=== PATIENT | male | born 1990 | race African-American/Black ===

== ENCOUNTER 2017-04-20 02:40 | Emergency (ER) | payer OTHER ==
[~2017-04-20] VITALS: Ht 167.6 cm; Wt 85.4 kg
[2017-04-20 02:46] VITALS: BP 133/96
--- NOTE | 2017-04-20 02:58 | NUR ---
TO ER BED 5
--- NOTE | 2017-04-20 03:02 | NUR ---
Patient being evaluated by physician at bedside.
[2017-04-20 03:15] VITALS: BP 133/96
== END 2017-04-20 03:15 | disposition home or self-care (01) ==
LOC: MED 02:40
DX: K27.9 Peptic ulcer, site unspecified, unspecified as acute or chronic, without hemorrhage or perforation (principal)

== ENCOUNTER 2017-11-08 01:10 | Emergency (ER) | payer OTHER ==
[~2017-11-08] VITALS: Ht 170.2 cm; Wt 86.2 kg
[2017-11-08 01:16] VITALS: BP 143/90
--- NOTE | 2017-11-08 01:18 | NUR ---
27 Y/O M W/C/O sorethroat, cant swallowed, white patches on his tongue for 3-4 days. PT DENIES ANY FEVER OR CHILLS. NO OTHER S/S OF DISTRESS NOTED. ER MD MADE AWARE.
--- NOTE | 2017-11-08 01:27 | NUR ---
PT. AMBULATES TO ER BED 11
--- NOTE | 2017-11-08 01:32 | NUR ---
PATIENT IS BEING SEEN BY DR FARR AT BEDSIDE
[2017-11-08] MEDS ORDERED: cefTRIAXone 1,000 MG in LIDOCAINE 1% ***ER ONLY *** 2.1 ML IM ONE (02:10)
--- NOTE | 2017-11-08 02:38 | NUR ---
Patient discharged with v/s stable. Written and verbal after care instructions given and explained. Patient alert, oriented and verbalized understanding of instructions. Ambulatory with steady gait. All questions addressed prior to discharge. ID band removed. Patient advised to follow up with PMD. Rx of AMOX 500MG AND MOTRIN 800MG given. Patient educated on indication of medication including possible reaction and side effects. Opportunity to ask questions provided and answered.
[2017-11-08 02:39] VITALS: BP 119/82
== END 2017-11-08 02:28 | disposition home or self-care (01) ==
LOC: MED 01:10
DX: J03.90 Acute tonsillitis, unspecified (principal); F17.210 Nicotine dependence, cigarettes, uncomplicated; F12.90 Cannabis use, unspecified, uncomplicated
CPT/HCPCS: 96372; 99283; J0696; J2001

== ENCOUNTER 2019-04-11 16:22 | Emergency (ER) | payer OTHER ==
[~2019-04-11] VITALS: Ht 170.2 cm; Wt 77.6 kg
[2019-04-11 16:26] VITALS: BP 158/77
--- NOTE | 2019-04-11 17:50 | NUR ---
PATIENT AMBULATED TO BED #7
[2019-04-11 17:52] VITALS: BP 165/80
--- NOTE | 2019-04-11 17:52 | NUR ---
PT BIB FRIEND C/O ABDOMINAL PAIN X 2 WEEKS. PT REPORTS NON-RADIATING INTERMITENT SHARP PAIN IN EPIGASTRIC REGION AT 8/10. PT REPORTS HARD STOOL THIS MORNING. + NAUSEA AND VOMITING. DENIES FEVER OR UTI SYMPTOMS. VSS. ER MD TO SEE PT.
--- NOTE | 2019-04-11 19:08 | NUR ---
Steve grimes in [facility] - 04/11/19 at 1909 by MICHELLE RECIEVED BEDSIDE REPORT FROM CATHERINE PRITCHETT. ASSUMED CARE AT THIS TIME.
--- NOTE | 2019-04-11 19:10 | NUR ---
RECIEVED BEDSIDE REPORT FROM CATHERINE PRITCHETT. ASSUMED CARE AT THIS TIME.
[2019-04-11] MEDS ORDERED: DICYCLOMINE 20 MG/2 ML VIAL IM ONE (19:35)
[2019-04-11 20:04] LABS: BASOPHILS # (AUTO) 0.1 K/uL (0.00-0.22); BASOPHILS % (AUTO) 0.7 % (0.0-2.0); EOSINOPHILS # (AUTO) 0.2 K/uL (0-0.4); EOSINOPHILS % (AUTO) 1.3 % (0.0-4.0); HEMATOCRIT 38.9 % (36-52); LYMPHOCYTES # (AUTO) 2.1 K/uL (2.0-11.5); LYMPHOCYTES % (AUTO) 17.7 % (20.5-51.1); MEAN CORPUSCULAR HEMOGLOBIN 30 pg (27-31); MEAN CORPUSCULAR HGB CONC 34 g/dL (33-37); MEAN CORPUSCULAR VOLUME 90.5 fL (80-94); MONOCYTES # (AUTO) 0.7 K/uL (0.8-1.0); MONOCYTES % (AUTO) 6.2 % (1.7-9.3); NEUTROPHILS # (AUTO) 8.8 K/uL (1.8-7.7); NEUTROPHILS % (AUTO) 74.1 % (42.2-75.2); PLATELET COUNT (AUTO) 248 K/uL (140-450); RED CELL DISTRIBUTION WIDTH 13.5 % (11.6-13.7); WHITE BLOOD COUNT (AUTO) 11.8 K/uL (4.8-10.8)
[2019-04-11 20:09] LABS: APPEARANCE,URINE CLEAR (CLEAR); BILIRUBIN,URINE NEGATIVE (NEGATIVE); COLOR,URINE YELLOW (YELLOW); LEUKOCYTE ESTERASE ,URINE NEGATIVE (NEGATIVE); NITRITE, URINE NEGATIVE (NEGATIVE); PH,URINE 7.5 (5.0-9.0); UGLUCOSE NEGATIVE (NEGATIVE)
[2019-04-11 20:12] LABS: BLOOD, URINE NEGATIVE (NEGATIVE)
[2019-04-11 20:20] LABS: ANION GAP 11.7 (8-16); CARBON DIOXIDE 24.1 mmol/L (21-32); CREATININE 0.7 mg/dL (0.7-1.3); POTASSIUM 3.8 mmol/L (3.5-5.1)
[2019-04-11 20:27] LABS: ALBUMIN 3.4 g/dL (3.4-5.0); TOTAL BILIRUBIN 0.2 mg/dL (0.0-1.0)
--- NOTE | 2019-04-11 20:52 | NUR ---
Patient discharged with v/s stable. Written and verbal after care instructions given and explained. Patient alert, oriented and verbalized understanding of instructions. Ambulatory with steady gait. All questions addressed prior to discharge. ID band removed. Patient advised to follow up with PMD. Rx of zofran, Bentyl, and flagyl given. Patient educated on indication of medication including possible reaction and side effects. Opportunity to ask questions provided and answered.
== END 2019-04-11 20:52 | disposition home or self-care (01) ==
LOC: MED 16:22
DX: R10.84 Generalized abdominal pain (principal); R19.7 Diarrhea, unspecified; R11.0 Nausea; Z98.890 Other specified postprocedural states
CPT/HCPCS: 36415; 80053; 81003; 83690; 85025; 96372; 99283; J0500